=== PATIENT | female | born 1960 ===

== ENCOUNTER 2025-02-14 08:14 | Outpatient (AMB) | payer OTHER, SELFPAY ==
--- NOTE | 2025-02-14 08:18 | MHC.PC.OV ---
Vital Signs 02/14/25 08:20 Height 4 ft 10.66 in Weight 116 lb 8 oz BMI 23.8 BP 126/70 Blood Pressure Location Lt brachial Position Sitting Pulse 58 Pulse Source Pulse Oximeter Temp 97.3 F Temp Source Temporal Artery Scan Pulse Oximetry (%) 100 Oxygen Delivery Method Room Air Intake Visit Reasons: NEW PATIENT Intake Note: Patient is a new patient here to establish care for Malanoma issues, Dry/Pacy skin, Interstitial , Sleep apena/Insomnia. Transferring care from [facility] ([facility]). Medical records have been requested and have received. Manual Lathe Machinist Required: No In Flight Refueling Operator: Not Required per policy Accompanied by: Self / Same As Patient Allergies adhesive tape Allergy (Intermediate, Verified 02/14/25 08:30) Rash Tobacco use date assessed: 02/14/25 Fall risk assessment: No Falls in past year Last assessed Fall Risk: 02/14/25 Dental Screening Dental Screen Date: 02/14/25 Did you have a dental visit in the last 12 months?: Yes Did you have a dental problem in the last 6 months where you did not have access to dental care?: No Was dental information given to patient?: Patient has dentist HPI HPI Comments History of Present Illness Details Patient is a 64 year old individual presenting to establish care, obtain prescription refills, and for evaluation of chronic sleep disturbance. The patient reports experiencing terrible sleep that started during the COVID-19 pandemic and has progressively worsened, leading to constant exhaustion. An at-home sleep study conducted on January 23 and showed a borderline apnea-hypopnea index (4.85), low nocturnal oxygen saturation, a slightly high pulse, and poor sleep efficiency of 50-59%, but no obstructive sleep apnea was diagnosed. The patient is not interested in using a CPAP machine or an oral appliance. The patient has a history of eczema, primarily in the winter, which presents as a dry scalp and patchy skin around the ears and abdomen. This is managed as needed with fluocinonide solution for the scalp and Elidel cream for the skin. 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 The last full body dermatological exam was many years ago. Past surgical history is significant for a gastric bypass in 2004, an appendectomy in 1981, a tonsillectomy in 1984, and plastic surgeries for excess skin between 2005 and 2009. Due to the gastric bypass, the patient supplements with vitamin B12 and vitamin D. There is a history of low iron requiring a blood transfusion around 2012 and a past B12 deficiency. The patient also has a history of recurrent severe UTIs, which have been diagnosed as interstitial cystitis. The patient is on hormone replacement therapy (Mimvey) and uses estradiol vaginal cream as needed, which is believed to help with vaginal dryness and interstitial cystitis flares. A Pap smear performed in June of this year was normal. The last mammogram was in 2012 or 2014, and the last bone density scan was in 2021; the patient has never had a colonoscopy. Family history is significant for melanoma in both parents, a genetic heart problem on the paternal side, and breast cancer in an older sister. The patient denies any use of tobacco or alcohol. The patient received tetanus, shingles, and other booster vaccinations in 2020. [facility] Surgical History (Updated 02/14/25 @ 08:42 by BRIAN Caal) History of cosmetic plastic surgery History of tonsillectomy History of appendectomy History of gastric bypass Social History (Updated 02/14/25 @ 08:42 by BRIAN Caal) Housing: Apartment Alcohol intake: current Alcohol intake frequency: holidays/special occasions only Patient Tobacco Use Status: Never used Tobacco e-Cigarette/Vaping Use: Never Used Second Hand Smoke Exposure: No service: No Current occupational status: retired Cognitive needs: No Hearing needs: No Vision needs: Yes (Glasses) Questionnaire PHQ-9 Over the last 2 weeks, how often have you been bothered by any of the following problems? 1. Little interest or pleasure in doing things: not at all 2. Feeling down, depressed, or hopeless: not at all 3. Trouble falling or staying asleep, or sleeping too much: not at all 4. Feeling tired or having little energy: not at all 5. Poor appetite or overeating: not at all 6. Feeling bad about yourself - or that you are a failure or have let yourself or your family down: not at all 7. Trouble concentrating on things, such as reading the newspaper or watching television: not at all 8. Moving or speaking so slowly that other people could have noticed. Or the opposite - being so fidgety or restless that you have been moving around a lot more than usual: not at all 9. Thoughts that you would be better off or of hurting yourself in some way: not at all Total score: 0 Depression Screening Interpretation: Negative Depression Screening Done: Yes Source: Developed by Drs. Yoav Balderrama, Lenore Miller, Carlos Enrique Garvin and colleagues, with an educational regina from [employer]. Thrive Questionnaire Date Thrive assessed: 02/14/25 I am a: Patient What is your living situation today?: I have a steady place to live Within the past 12 months, did the food you bought not last and you didn't have the money to get more?: I choose not to answer this question Within the past 12 months, did you worry whether your food would run out before you got money to buy more?: I choose not to answer this question Do you have trouble paying for medicines?: I choose not to answer this question Do you have trouble getting transportation to medical appointments?: I choose not to answer this question Do you have trouble paying your heating and electricity bill?: I choose not to answer this question Do you have trouble taking care of your child, family member or friend?: I choose not to answer this question Do you have trouble with day-to-day activities such as bathing, preparing meals, shopping, managing finances, etc.?: I choose not to answer this question Are you currently unemployed and looking for a job?: I choose not to answer this question Are you interested in more education?: I choose not to answer this question Please select the resources that you would like help with: None Currently or been in a relationship where the following occur: I choose not to answer THRIVE Score: 0 AUDIT C Alcohol Use Questionnaire (AUDIT-C) 1. How often do you have a drink containing alcohol?: Never Total Score: 0 ELAYNE-7 AMB Questionnaire ELAYNE-7 Date ELAYNE - 7 assessed: 02/14/25 Feeling nervous, anxious, or on edge: 0 = Not at all Not being able to stop or control worryin = Not at all Worrying too much about different things: 0 = Not at all Trouble relaxin = Not at all Being so restless that it is hard to sit still: 0 = Not at all Becoming easily annoyed or irritable: 0 = Not at all Feeling afraid as if something awful might happen: 0 = Not at all Total ELAYNE-7 score (0-4 normal; 5-9 mild; 10-14 moderate; 15-21 severe): 0 Source: Developed by Drs. Yoav Balderrama, Lenore Miller, Carlos Enrique Garvin and colleagues, with an educational regina from [employer]. Physical exam (Primary Care) Vital Signs: Last Vital Signs Temp 97.3 F 02/14/25 08:20 Pulse 58 02/14/25 08:20 BP 126/70 02/14/25 08:20 Pulse Ox 100 02/14/25 08:20 Oxygen Delivery Method Room Air 02/14/25 08:20 General: Well-appearing, alert, oriented ?3, in no acute distress. Cardiovascular: RRR, S1-S2 appreciated, no murmurs, rubs or gallops. Respiratory: Lungs clear to auscultation bilaterally, no wheezes, rales or rhonchi. BMI result Body Mass Index 23.8 Tobacco/Smoking Status: Tobacco use Status Patient Tobacco Use Status Never used Tobacco 02/14/25 08:42 Depression Screening Interpretation: Negative Currently or been in a relationship where the following occur: I choose not to answer Coding Level of Care Code New Pt Level 4 (85261) Complex visit Add On G2211 Diagnoses Establishing care with new doctor, encounter for Z76.89 Eczema, unspecified type L30.9 Eczema type: unspecified Family history of melanoma Z80.8 Interstitial cystitis N30.10 Sleep disturbances G47.9 Assessment & Plan Assessment & Plan (1) Establishing care with new doctor, encounter for: Code(s): Z76.89 - Persons encountering health services in other specified circumstances Plan: Patient is a 64-year-old female presenting today to establish care. Medical history is remarkable for interstitial cystitis, eczema, facial squamous cell carcinoma s/p excision, and gastric bypass in 2004. (2) Eczema: Code(s): L30.9 - Dermatitis, unspecified Category: Medical Qualifiers: Eczema type: unspecified Qualified Code(s): L30.9 - Dermatitis, unspecified Plan: Patient with a history of eczema, on pimercolimus cream prn and Flucinonide topical solution for scalp prn. Medication refill provided. (3) Family history of melanoma: Code(s): Z80.8 - Family history of malignant neoplasm of other organs or systems Category: Medical Plan: Patient has family history of melanoma, and personal history squamous cell carcinoma on face s/p excision of lesions. Dermatology referral provided for full skin check. (4) Interstitial cystitis: Code(s): N30.10 - Interstitial cystitis (chronic) without hematuria Category: Medical Plan: Patient reports a history of interstitial cystitis and recurrent UTIs, for which she uses estradiol vaginal cream to help with the dryness and decreased risk of flare-ups. Most recent urinalysis from November 2024 was normal. (5) Sleep disturbances: Code(s): G47.9 - Sleep disorder, unspecified Plan: Patient reports chronic complaint of sleep disturbances and exhaustion. She had at home sleep study on 01/23/2025 that was negative for obstructive sleep apnea but showed low nocturnal oxygen saturation and poor sleep efficacy. Referral to sleep Medicine is provided for further evaluation and discussion of treatment options. Plan Medication refills have been ordered for fluocinonide topical solution, Elidel cream, Mimvey, and estradiol vaginal cream. Patient brought papers of her recent blood work from November 2024, that was reviewed and found to be within normal limits including CBC, CMP, lipid panel, iron panel, vitamin B12 and folate. Follow up in 6 months for annual physical exam. Orders: Referrals Sleep Medicine Referral G47.9 - Sleep disorder, unspecified Dermatology Referral L30.9 - Dermatitis, unspecified, Z80.8 - Family history of malignant neoplasm of other organs or systems Medications: New pimecrolimus 1% 1 appl topical BID 60 grams 0RF eczema estradiol-norethindrone acet 1-0.5 mg (Mimvey) 1 tab PO DAILY 140 tabs 1RF fluocinonide 0.05% 1 appl topical BID 60 mL 0RF estradiol 0.01%(0.1mg/gram) for 14 days 1 g vaginal DAILY 42.5 grams 0RF
--- OUTSIDE RECORDS SUMMARY | 2025-02-14 08:18 | XMS_ITS | Clinical Summary ---
Author Organization [place] [address] [facility] Address [address] [place] [address] Phone Care Team Providers Care Technician Helper Instrument Name Role Phone Mariana Gar MD Primary Care Provider [phone] Allergies Active Allergy Reactions Criticality Noted Date Comments Hay Fever And Allergy Relief Congestion 020 Medications estradiol-noret hindrone acet 0.5-0.1 mg per tablet TAKE 1 TABLET BY MOUTH EVERY DAY 0 Active ALPRAZolam (XANAX) 0.5 mg tablet alprazolam 0.5 mg tablet Active tretinoin (RETIN-A) 0.1 % cream Apply topically nightly. Active celecoxib (CELEBREX) 200 mg capsule Take 200 mg by mouth daily. Active cyclobenzaprine (FLEXERIL) 10 mg tablet Take 1 tablet (10 mg total) by mouth 3 (three) times daily as needed for muscle spasms. 30 tablet 0 Active tretinoin (RETIN-A) 0.1 % cream Apply topically nightly. 45 g 2 0 Active pimecrolimus (ELIDEL) 1 % cream Apply topically 2 (two) times daily. 30 g 1 0 Active traZODone (DESYREL) 50 mg tablet Take 1 tablet (50 mg total) by mouth nightly. 90 tablet 1 Active Active Problems Problem Noted Date Diagnosed Date H/O gastric bypass 01/20/2020 Cervical radiculopathy 01/20/2020 Immunizations Immunization Administration Dates Next Due COVID-19, PIERCE (J&J), 0.5 mL 07/20/2020 Influenza, injectable, MDCK, quad, preservative free 11/25/2019 MMR 02/23/2020 ZOSTER RECOMBINANT (Shingrix) 02/20/2020, 020 Family History Medical History Relation Name Comments Colon cancer Brother Congenital heart disease Father Diabetes Father Melanoma Father Colon cancer Mother Melanoma Mother Breast cancer Sister Relation Name Status Comments Brother Father Mother Alive Sister Alive Social History Tobacco Use Types Packs/Day Years Used Date Smoking Tobacco: Never Smokeless Tobacco: Never Alcohol Use Standard Drinks/Week Comments Not Currently 0 (1 standard drink = 0.6 oz pur e alcohol) PHQ-2 Answer Date Recorded PHQ-2 Total Score 0 01/20/2020 Comments Unknown Sex and Gender Information Value Date Recorded Sex Assigned at Not on file Legal Sex Female 8:16 AM EST Gender Identity Not on file Sexual Orientation Not on file Last Filed Vital Signs Vital Sign Reading Time Taken Comments Blood Pressure 120/78 01/20/2020 7:21 AM EST Pulse 69 01/20/2020 7:21 AM EST Temperature - - Respiratory Rate 18 01/20/2020 7:21 AM EST Oxygen Saturation 98% 01/20/2020 7:21 AM EST Inhaled Oxygen Concentration - - Weight 54 kg (119 lb) 01/20/2020 7:21 AM EST Height 149.9 cm (4' 11 ) 01/20/2020 7:21 AM EST Body Mass Index 24.04 01/20/2020 7:21 AM EST Plan of Treatment Health Maintenance Due Date Last Done Comments Tetanus adult (Td q 10,TDAP once) 1980 Breast cancer screening 2000 Colon cancer screening, Colonoscopy 2005 Pneumococcal Vaccine (50+ years) (1 of 1 - PCV) 2010 Diabetes screening 01/29/2023 01/30/2020, 01/30/2020 Influenza vaccine 10/14/2024 12/21/2020, 11/25/2019 Covid-19 vaccine series (2024- season) 2024 01/10/2021, 07/20/2020, 06/12/2020, Additional history exists Lipid disorder screening 01/29/2025 01/30/2020 Cervical cancer screening 04/19/20262021, 07/20/2009, 07/29/2005, Additional history exists RSV Immunization (1 - 1-dose 75+ series) 2035 Shingles vaccine (Shingrix) Completed 02/20/2020, 0 12/09/2019 HIV screening Discontinued Hepatitis C screening Discontinued Meningococcal B Vaccine Aged Out No l onger eligible based on patient's age to complete this topic Meningococcal Vaccine Aged Out No chantel gibson eligible based on patient's age to complete this topic Procedures Procedure Name Priority Date/Time Associated Diagnosis Comments HEMOGLOBIN A1C Routine 01/30/2020 8:11 AM EST Annual physical exam LIPID PANEL Routine 01/30/2020 8:11 AM EST Annual physical exam ZZZCYTOLOGY PRACTICING MD ANESTHESIOLOGIST CASES (GH) Routine 07/20/2009 1:00 AM EDT from Last 3 Months or Most Recently Relevant to Health Maintenance Results * Hemoglobin A1c (01/30/2020 8:11 AM EST) Hemoglobin A1c 5.1 See Comment % 01/30/2020 12:57 PM EST [facility] Comment: The [employer], 2012 Diagnosis and Classification of Diabetes Mellitus: Hemoglobin A1c 5.7 - 6.4% - Increased risk for diabetes >= 6.5% - Diagnostic of diabetes Blood Venipuncture / Unknown 01/30/2020 8:11 AM EST 01/30/2020 8:11 AM EST us Kip Amezcua MD LAB BLOOD ORDERABLES Mehreen l Result [facility] [address] [place] [address], [facility] [phone] * Lipid panel (01/30/2020 8:11 AM EST) Cholesterol 186 50 - 200 mg/dL 01/30/2020 11:48 AM EST [facility] HDL 73 40 - 90 mg/dL 01/30/2020 11:48 AM [facility] Triglycerides 94 30 - 200 mg/dL 01/30/2020 11:48 AM [facility] Chol/HDL Ratio 2.5 1.0 - 3.9 01/30/2020 11:48 AM [facility] LDL Calculated 94 20 - 130 mg/dL 01/30/2020 11:48 AM [facility] Blood Venipuncture / Unknown 01/30/2020 8:11 AM EST 01/30/2020 8:11 AM EST us Kip Amezcua MD LAB BLOOD ORDERABLES Mehreen burk Result [facility] [address] [place] [address] * Cytology byproducts extractor cases () (07/20/2009 1:00 AM EDT) Final Report Category: laboratory; Code: CYPAP; Status: final 2009-07-25 13:09 Patient Name: COSME FONG [facility]#:[id number] WP#:[id number] Collection Date: 2009-07-20 Received Date: 2009-07-23 Submitting Physician: SOCO BRIGGS Physicians SOCO BRIGGS Processing Information Specimen processed, slide stained and processed successfully by automated screening device followed by manual screening, all performed at this location. Automated screening performed utilizing [employer] Support Specialist System, [employer], [place], [place]. Adequacy Assessment of Specimen Satisfactory Endocervical transformation zone component is present. Screening Test Interpretation CX/VAG SP-Thin Layer Pap Test NEGATIVE FOR INTRAEPITHELIAL LESION OR MALIGNANCY Electronic Signature FELIPE VARGAS MA (ASCP) (Case signed 07 25 2009) Prior Pap & Literacy Consultant Cases Accession Date [id number] 07 30 2005 1: CX/VAG SP-Thin Layer Pap Test: NEGATIVE FOR INTRAEPITHELIAL LESION OR MALIGNANCY [id number] 03 29 2004 1: CX/VAG SP-Thin Layer Pap Test: NEGATIVE FOR INTRAEPITHELIAL LESION OR MALIGNANCY; REACTIVE CHANGES IDENTIFIED [id number] 01 20 2002 1: CX/VAG SP-Thin Layer Pap Test: WITHIN NORMAL LIMITS [id number] 02 22 2001 1: CX/VAG TP-Thin Layer Pap Test: BENIGN CELLULAR CHANGES CONSISTENT WITH A REACTIVE PROCESS Charges by Specimen Specimen Code CPT Count 1 [id number] 1 7 [id number] 1 [facility] Final Diagnosis 1. CX/VAG SP-Thin Layer Pap Test NEGATIVE FOR INTRAEPITHELIAL LESION OR MALIGNANCY [facility] Gross Description 1. Specimen processed, slide stained and processed successfully by automated screening device followed by manual screening, all performed at this location. Automated screening performed utilizing [employer] Support [employer]ist System, [employer], [place], [place]. [facility] 07/20/2009 1:00 AM EDT 07/23/2009 1:00 AM EDT Soco Briggs MD PATHOLOGY/CYTOLOGY ORDERABLES Final Result [facility] [address] [place] [id number] [phone] from Last 3 Months or Most Recently Relevant to Health Maintenance Insurance [employer] Care Teams Technician Helper Instrument Relationship Specialty Start Date End Date Mariana Gar MD [address] [facility] [address] [place] [phone] PCP - General Internal Medicine 08/26/21
--- OUTSIDE RECORDS SUMMARY | 2025-02-14 08:18 | XMS_ITS | Encounter Summary ---
Author Organization [facility] Address [address] [place] [phone] Care Team Providers Care Price Changer Name Role Phone Mariana Gar MD Primary Care Provider [phone] Encounter Details Date Type Department Care Team ([facility] st Contact Info) Description 04/03/2012 Abstract [facility] Health Information Management [address] [place] [id number] [address], Primary Care [facility] [place] [place] [address] Social History Tobacco Use Types Packs/Day Years Used Date Smoking Tobacco: Never Assessed Comments Unknown Sex and Gender Information Value Date Recorded Sex Assigned at Not on file Legal Sex Female 8:16 AM EST Gender Identity Not on file Sexual Orientation Not on file documented as of this encounter Last Filed Vital Signs Vital Sign Reading Time Taken Comments Blood Pressure - - Pulse - - Temperature - - Respiratory Rate - - Oxygen Saturation - - Inhaled Oxygen Concentration - - Weight 47.7 kg (105 lb 3.6 oz) 02/22/2007 12:01 AM EST Height 152.4 cm (5') 09/15/2005 12:01 AM EDT Body Mass Index 20.55 09/15/2005 12:01 AM EDT documented in this encounter Plan of Treatment Not on file documented as of this encounter Visit Diagnoses Not on filedocumented in this encounter Care Teams Price Changer Relationship Specialty Start Date End Date Mariana Gar MD [address] [facility] [address] [place] [phone] PCP - General Internal Medicine 08/26/21 documented as of this encounter
--- OUTSIDE RECORDS SUMMARY | 2025-02-14 08:18 | XMS_ITS | Encounter Summary ---
Author Organization [facility] Address [address] [place] [phone] Care Team Providers Care Manager User Interface Name Role Phone Mariana Gar MD Primary Care Provider [phone] Reason for Referral * Consultation (Routine) - Closed Specialty Diagnoses / Procedures Referred By Igor jimenez Referred To Contact Urology Diagnoses Interstitial cystitis Referral, Self Caitie Marques MD [address] [place] [phone] Phone: tel: fax: Referral ID Status Reason Start Date Expiration Date V isits Requested Visits Authorized [id number] Closed Specialty Services Required 08/26/2021 08/26/2022 1 1 Encounter Details Date Type Department Care Team (Latest Contact Info) Description 08/26/2021 Transcribed Orders [facility] SCHEDULING [address] [place], [place] [id number] Referral, Self Interstitial cystitis (Primary Dx) Social History Tobacco Use Types Packs/Day Years [...] on file documented as of this encounter Plan of Treatment Scheduled Referrals Name Type Priority Associated Diagnoses Order Schedule Ambulatory referral to Urology Outpatient Referral Routine Interstitial cystitis Ordered: 08/26/2021 documented as of this encounter Visit Diagnoses Diagnosis Interstitial cystitis- Primary Chronic interstitial cystitis documented in this encounter Additional Health Concerns Assessment Noted Time PHQ-9 Depression Total Score: 0 01/20/20 20 7:20 AM EST documented as of this encounter Care Teams Manager User Interface Relationship Specialty Start Date End Date Mariana Gar MD [address] [facility] [address] [place] [address] PCP - General Internal Medicine 08/26/21 documented as of this encounter
--- OUTSIDE RECORDS SUMMARY | 2025-02-14 08:18 | XMS_ITS | Encounter Summary ---
Author Organization [facility] Address [address] [place] [address] Care Team Providers Care Games Dealer Name Role Phone Mariana Gar MD Primary Care Provider [phone] Encounter Details Date Type Department Care Team (Late st Contact Info) Description 08/12/2019 Scanned Document [facility] Rhe[facility] [address] [place], [place] [phone] Nicole Lopes MD 15 [facility] [address] [place] [phone] Social History Tobacco Use Types Packs/Day Years Used Date Smoking Tobacco: Never Assessed Comments Unknown Sex and Gender Information Value Date Recorded Sex Assigned at Not on file Legal Sex Female 8:16 AM EST Gender Identity Not on file Sexual Orientation Not on file COVID-19 Exposure Response Date Recorded In the last month, have you been in contact with someone who was confirmed or suspected to have Coronavirus / COVID-19? No / Unsure 08/12/2019 10:53 AM EDT documented as of this encounter Plan of Treatment Not on file documented as of this encounter Visit Diagnoses Not on filedocumented in this encounter Care Teams Games Dealer Relationship Specialty Start Date End Date Mariana Gar MD [address] [facility] [address] [place] [phone] PCP - General Internal Medicine 08/26/21 documented as of this encounter
[2025-02-14 08:20] VITALS: BP 126/70; PULSE 58; TEMP 36.3; O2SAT 100; BMI 23.8
== END 2025-02-14 09:32 | disposition home or self-care (01) ==
LOC: HO.HMCH 08:15
PROVIDERS: PCP Student in an Organized Health Care Education/Training Program; Visit Provider Student in an Organized Health Care Education/Training Program
DX: Z76.89 Persons encountering health services in other specified circumstances (principal); L30.9 Dermatitis, unspecified; Z80.8 Family history of malignant neoplasm of other organs or systems; N30.10 Interstitial cystitis (chronic) without hematuria; G47.9 Sleep disorder, unspecified